=== PATIENT | female | born 2000 | race Caucasian/White ===

== ENCOUNTER 2021-10-10 13:50 | Outpatient (CLI) | payer BC, SELFPAY ==
[2021-10-10 18:44] LABS: HIV 1/2/P24 Combo Screen* Negative (Negative)
[2021-10-10 19:22] LABS: Hepatitis B Surface Antigen* Negative (Negative)
[2021-10-10 20:20] LABS: Hepatitis C Virus Antibody* Negative (Negative)
[2021-10-10 20:32] LABS: Chlamydia DNA Amplified* NOT DETECTED (No Detected); GC DNA Amplified* NOT DETECTED (No Detected)
[2021-10-14 11:27] LABS: Varicella-Zoster Virus Ab, IgG 39.3 IV
[2021-10-14 11:30] LABS: Rubella Antibody IgG 17.5 IU/mL
[2021-10-14 11:43] LABS: Rapid Plasma Reagin (RPR) Non Reactive (Non Reactive)
== END 2021-10-10 13:51 | disposition home or self-care (01) ==
PROVIDERS: Visit Provider Advanced Practice Midwife
DX: Z34.91 Encounter for supervision of normal pregnancy, unspecified, first trimester (principal); Z3A.12 12 weeks gestation of pregnancy
CPT/HCPCS: 76817; 86592; 86703; 86762; 86787; 86803; 86850; 86900; 86901; 87086; 87340; 87491; 87591

== ENCOUNTER 2021-12-06 13:46 | Outpatient (CLI) | payer BC, SELFPAY ==
--- NOTE | 2021-12-06 14:00 | CRLHL7_ITS ---
For Patients: As a result of the Century Cures Act, medical imaging exams and procedure reports are released immediately into your electronic medical record. You may view this report before your referring provider. If you have questions, please contact your health care provider. INDICATION: Evaluate anatomy. COMPARISON: 10/10/2021 TECHNIQUE: Real time segura scale imaging of the fetus was performed as well as color Doppler analysis of the umbilical vessels. FINDINGS: Sonographic imaging demonstrates a single living intrauterine gestation. Fetus demonstrates a regular cardiac rate of 145 beats per minute. Fetus has a vertex position. The placenta lies posteriorly without evidence of placenta previa. The edge of the placenta is located 4.1 cm from the internal cervical os. Amniotic fluid volume appears normal. Single deepest vertical pocket: 4.9 cm. The cervix is closed and measures 3.2 cm in length. The composite ultrasound gestational age is calculated at 21 weeks 4 days with an estimated sonographic due date of 04/14/2022. The estimated weight is 418 grams which lies at the 94th %. The following biometric measurements were obtained: Biparietal diameter: 5.4 cm/22 weeks 3 days greater than 97th% Head circumference: 19.4 cm/21 weeks 5 days 92nd% Abdominal circumference: 16.7 cm/21 weeks 5 days 86th% Femur length: 3.4 cm/20 weeks 5 days 59th% The HC/AC ratio measures: 1.16 range (1.06-1.24) On anatomic survey, there is a normal appearance of the cerebral ventricles, cavum septi pellucidi, cisterna magna and cerebellum. The nose, lips, and facial profile appear normal. The cervical, thoracic and lumbar spine are well visualized and appear normal. There is a normal four-chamber heart view and the left and right ventricular outflow tracts appear normal. The diaphragm and stomach appear normal. The kidneys and bladder also appear normal. There is a normal three-vessel cord and eccentric cord insertion site. The four extremities appear normal. IMPRESSION: Sonographic gestational age 21 weeks 4 days and sonographic due date 04/14/2022. Sonographic age is 9 days ahead of the clinical age. Estimated weight 94th percentile. Abdominal circumference 86th percentile. Normal anatomic survey. Dictated by David Bales MD @ 12/07/2021 3:18:53 PM (Electronically Signed)
== END 2021-12-06 13:47 | disposition home or self-care (01) ==
PROVIDERS: Visit Provider Advanced Practice Midwife
DX: Z34.92 Encounter for supervision of normal pregnancy, unspecified, second trimester (principal); Z3A.20 20 weeks gestation of pregnancy
CPT/HCPCS: 76805

== ENCOUNTER 2022-01-30 11:46 | Outpatient (CLI) | payer BC, SELFPAY ==
[2022-01-30 12:51] LABS: Glucose 1 Hour Gest 130 mg/dl (70-180)
[2022-02-01 23:48] LABS: Rapid Plasma Reagin (RPR) Non Reactive (Non Reactive)
== END 2022-01-30 11:47 | disposition home or self-care (01) ==
PROVIDERS: Visit Provider Advanced Practice Midwife
DX: Z34.93 Encounter for supervision of normal pregnancy, unspecified, third trimester (principal); Z3A.28 28 weeks gestation of pregnancy
CPT/HCPCS: 82950; 85461; 86592; 86850

== ENCOUNTER 2022-03-29 10:56 | Outpatient (CLI) | payer BC, SELFPAY ==
[2022-03-30 12:48] LABS: Strep B DNA Probe NEGATIVE (Negative)
[2022-03-30 12:51] LABS: Strep B Pen/Amox Allergy No
== END 2022-03-29 10:57 | disposition home or self-care (01) ==
LOC: NFLDREF 10:57
PROVIDERS: Visit Provider Advanced Practice Midwife
DX: Z34.03 Encounter for supervision of normal first pregnancy, third trimester (principal); Z3A.35 35 weeks gestation of pregnancy
CPT/HCPCS: 87081; 87653

== ENCOUNTER 2022-05-02 00:08 | Inpatient (IN) | payer BC, SELFPAY ==
[2022-05-02] VITALS (18 sets, daily range): BP systolic 103–142; BP diastolic 63–88; PULSE 88–129; RESP 14–16; TEMP 36.5–36.8; O2SAT 93–98; BMI 37.8
--- NOTE | 2022-05-02 00:42 | P.LDBA_ITS ---
Subjective History of Present Illness Date Seen: 05/02/22 Narrative: Patient is being admitted to Labor and Delivery for active labor. She is a 21 year old at 41.2 weeks gestation. Her full history and physical was dictated by Erlinda Echevarria CNM on 05/04/22. Please see this for details. 1. Varicella non-immune (no hx of disease or vaccination) NEEDS vaccine pp 2. B negative blood type NEEDS RhoGAM at 28 weeks: Given 01/30/22 NEEDS RhoGAM pp OB - Problem Based A/P Additional Plan (1) Pain during labor: Status: Acute (2) Rh negative state in antepartum period: Status: Acute (3) 41 weeks gestation of : Status: Acute Plan ASSESSMENT:? at 41.2?weeks gestation? GBS negative? Uncomplicated ? Postterm in active labor ?? PLAN:? 1. Candidate for analgesia of choice. Planning unmedicated .? 2. Anticipate ? 3. Expectant management at this time.? 4. IV not needed at this time. Consider if patient condition changes per protocol. 5. Intermittent auscultation after reactive tracing is obtained. Delivery/Labor/Induction Plan Plan: expectant management OB Result Labs Blood Type: B (-) negative GBS Status: negative OB Exam Physical Exam Vital signs: Pulse Ox 98 05/02/22 00:36 Narrative: Vitals per EMR? Psychiatric:? Alert and oriented x3? HEENT:? Normocephalic, atraumatic? Neck:? Supple without adenopathy or thyromegaly? Lungs:? Clear to auscultation bilaterally? Heart:? Regular rate and rhythm, no murmur, rub or gallop? Abdomen:? Soft, nontender, and gravid? Extremities:? No edema or erythema? Pelvic:? SVE: 4-5cm/100%/0 per RN exam? Membrane status:? intact? presentation:? vertex? FHT:? Moderate Variability.? Positive Accels.? No Decels. Baseline 135.? Robinson:? Ctx Q2-3min? Detailed Labor and Delivery Exam Patient Gravid: Yes Dilation (cm): 4 Effacement (%): 100 Tachysystole: No Contraction intensity: Strong/Firm Fetus (Single) Station: 0 Amniotic Membrane Status: intact Heart Rate Baseline: 135 Monitor Accelerations: Present Monitor Decelerations: None [facility] Variability: Moderate (6-25)
[2022-05-02 01:02] LABS: SARS PCR* Negative SARS-CoV-2 (Negative)
[2022-05-02] MEDS: OXYTOCIN 10 UNIT/ML INJ IM (02:47)
[2022-05-02] MEDS: LIDOCAINE 1 % PF 30 ML INJECTION (02:57)
[2022-05-02 03:20] LABS: Basophils Percent Auto 0.1 % (0.0-3.0); Hematocrit 38.1 % (33.0-51.0); Immature Granulocytes Pct Auto 0.2 %; Lymphocytes Percent Auto 3.3 % (20-44); Mean Corpuscular HGB Conc 34 gm/dL (32-36); Mean Corpuscular Hemoglobin 29 pg (26-34); Mean Corpuscular Volume 84 fL (80-100); Monocytes Percent Auto 2.9 % (0.0-11.0); Neutrophils Percent Auto 93.5 % (42.0-72.0); Platelet Count* 208 K/uL (140-440); RDW Coefficient of Variation % 12.8 % (11.5-15.5); Red Blood Count 4.52 m/uL (4.00-5.20)
[2022-05-02 03:22] LABS: Slide Review Reflex No
[2022-05-02] MEDS: fentaNYL 100 MCG/2 ML inj 50 MCG IVP ×2 (03:40→04:00)
--- NOTE | 2022-05-02 04:24 | W.PM.VAGDELN ---
OB Procedure Vag Delivery Mother Details Mother Details: The patient is a 21 year-old, 1, Para 1, admitted on 05/02/22 at 41.2 weeks gestation. She started aline regularly and uncomfortably at 2300. she arrived at 4-5cm per RN exam. : 1 Para: 1 Weeks Gestation: 41.2 Admission Date: 05/02/22 Additional Details Amniotic Membrane Status: SROM Amniotic Membrane Rupture Date: 05/02/22 Amniotic Membrane Rupture Time: 00:40 Amniotic Membrane Fluid Description: Clear Analgesia/Anesthesia Type: Fentanyl (for repair only) and Nitrous Oxide Waterbirth: No Pitcoin: Yes Intrapartal Events: None Labor Onset: 05/02/22 ar 2300 Complete: 01:27 (presumed with pushing) Pushin:27 Heart: heart tones during second stage were dopplered in the 130-140 with occasional decelerations to the 110 with pushing in the last few pushes Delivery Details Delivery Date: 05/02/22 Delivery Time: 02:44 Route of delivery: Infant Gender: Female Infant Viability: Alive; Heart Rate Present Position at Delivery: OA Delivery Details: Delivered over intact perineum via spontaneous vaginal delivery. was placed on maternal abdomen.? Cord was clamped and cut after 5 minute delay. Nose and mouth were not immediately bulb suctioned.? Infant weight 8lb 10oz. 1 Minute Interval Total Score: 8 5 Minute Interval Total Score: 9 Additional Details Shoulder Dystocia: No Placenta Delivery Time: 03:35 Placental Delivery Description: Spontaneous Delivery repair: Vicryl Procedure Done: Global Estimated Blood Loss: 900 Laceration: Perineal - 3rd Degree (with sulcal tear) Episiotomy Description: None Blood Loss Measurement Type: QBL Sponge/Need Count Correct: Yes Cord Vessel Description: see note Event Summary Status: Annie arrived on the unit in active labor. She progressed naturally to complete and feeling pushy. She pushed in multiple positions including on the stool, standing, and hand & knees. She ultimately delivered in hands & knees. Baby rapidly descended and delivered. With cord traction tearing of the membranes from the placenta was felt. Dr. Hernandez was requested to evaluate as placenta was not coming on its own and was unable to apply cord traction. The placenta did deliver with maternal pushing as NDP arrived into the room. The cord completely from the placenta at the time of the placenta delivery. The placenta was found to have velamentous cord and marginal cord insertion. There were calcifications observed on the placenta. Upon evaluation by NDP a 3rd degree laceration with sulcal tears was discovered. This was repaired by NDP. Se her note for details. She also had very edematous tissue and a right labial hematoma. A stanley catheter was placed and vaginal packing was placed and are to stay in for 12 hours. They can be removed at 1600. Mother and infant were stable after delivery.
--- NOTE | 2022-05-02 04:40 | PM.PROC ---
Procedure Note Time Seen by Provider: 04:40 Date Seen: 05/02/22 Date of procedure: 05/02/22 Will [facility] bill your pro fee for this procedure?: Yes Procedure: I was asked to assist Cande Echevarria CNM with delivery of the placenta and repair of the vaginal laceration. The placenta delivered spontaneously, see Cande's note for details of labor and delivery. Annie is a 21-year-old 1 now para 1 had a spontaneous vaginal delivery early this morning. I was called for retained placenta which delivered spontaneously soon after I arrived. There was a marginal and velamentous insertion of the umbilical cord. The patient had nitrous gas for analgesia. She received 100 mcg IV fentanyl x1 and evaluation of the laceration showed a third-degree laceration with bilateral sulcus extensions. The laceration was injected with 40 mL of 1% lidocaine. The apices of the sulcus extensions were reapproximated with 3-0 Vicryl in a running locked manner. The vaginal fascia a lateral to the external anal sphincter was grasped with Allis clamps. Three figure of 8 sutures were placed using 3-0 Vicryl: 1 superior to the clamps, 1 inferior to the clamps just above the anus and 1 just underneath the Allis clamps to reinforce the anal sphincter. The remaining second-degree laceration was repaired in the usual manner with 3-0 Vicryl. A Hoyos catheter and vaginal pack were placed. 45 minutes to perform the repair. The patient tolerated this well. 2 g IV Ancef x1 were ordered. Hoyos catheter and vaginal pack can be removed at 4:00 p.m. on 05/02/2022 Surgeon: Yenifer Hernandez MD
[2022-05-02] MEDS: IBUPROFEN 600 MG TABLET PO ×3 (05:06→19:18)
[2022-05-02] MEDS: CEFAZOLIN 2 GM in 0.9 % SODIUM CHLORIDE Mini-bag 100 ML IVPB (07:57)
[2022-05-02] MEDS: DOCUSATE SODIUM 100 MG CAPSULE PO ×2 (08:00→19:18)
[2022-05-02] MEDS: polyethylene glycoL 3350 17 GM PACK PO (08:00)
[2022-05-02] MEDS: SENNOSIDES/DOCUSATE TABLET 1 TAB PO ×2 (08:26→19:18)
[2022-05-02] MEDS: ACETAMINOPHEN 500 MG TABLET 1000 MG PO ×2 (09:27→23:56)
[2022-05-02 18:59] LABS: Basophils Percent Auto 0.1 % (0.0-3.0); Hematocrit 29.5 % (33.0-51.0); Hemoglobin* 9.9 gm/dL (12.0-16.0); Immature Granulocytes Pct Auto 0.2 %; Lymphocytes Percent Auto 12.9 % (20-44); Mean Corpuscular HGB Conc 34 gm/dL (32-36); Mean Corpuscular Hemoglobin 29 pg (26-34); Mean Corpuscular Volume 86 fL (80-100); Monocytes Percent Auto 8.4 % (0.0-11.0); Neutrophils Percent Auto 78.4 % (42.0-72.0); Platelet Count* 222 K/uL (140-440); RDW Coefficient of Variation % 13.2 % (11.5-15.5); Red Blood Count 3.45 m/uL (4.00-5.20); White Blood Count* 12.21 K/uL (4.50-11.00)
[2022-05-02 19:12] LABS: Slide Review Reflex No
[2022-05-03 00:15] VITALS: BP 136/88; PULSE 111; RESP 16; TEMP 36.5; O2SAT 98
[2022-05-03] MEDS: IBUPROFEN 600 MG TABLET PO ×2 (02:22→08:24)
[2022-05-03 06:18] LABS: Hemoglobin* 10.1 gm/dL (12.0-16.0)
[2022-05-03 08:10] VITALS: BP 126/85; PULSE 94; RESP 16; TEMP 36.4; O2SAT 96
--- NOTE | 2022-05-03 08:17 | P.DS_ITS ---
DS: Providers Provider Date Seen: 05/03/22 Date of admission: 05/02/22 00:08 Primary care physician: Not a Local Provider Admitting Clinician: Cande Echevarria CNM Attending Physician on discharge: Africa Marie CNM with Kahlil CARMONA Date of Discharge: 05/03/22 DS: Diagnosis Discharge Diagnosis (1) care and examination immediately after delivery: Status: Acute (2) Third degree perineal laceration during delivery with more than 50% tear of external anal sphincter: Status: Acute (3) Lactating mother: Status: Acute Exam Narrative: Exam Narrative: GENERAL APPEARANCE:? normal affect, alert, no distress? MOOD:? appropriate? CHEST:? clear to auscultation? HEART:? regular rate and rhythm? ABDOMEN:? soft, non-tender the uterine fundus is At Umbilicus, Midline and is appropriate for the stage of recovery.? PERINEUM:? mild edema of the perineum, there is a Perineal Laceration,? 3rd degree that is healing well.? EXTREMITIES:? normal and 1+ edema? Const: Vital Signs, click to edit/add: Vital Signs - 24 hr 05/02/22 11:51 05/02/22 16:04 05/02/22 19:48 Temperature 98.2 F 98.1 F 97.7 F Pulse Rate [Pulse Oximeter] 102 H 114 H 111 H Respiratory Rate 16 16 14 Blood Pressure [Le ft Arm] 121/80 113/63 129/83 Pulse Oximetry 98 96 Oxygen Delivery Me thod Room Air Room Air 05/03/22 00:15 Temperature 97.7 F Pulse Rate [Pulse Oximeter] 111 H Respiratory Rate 16 Blood Pressure [Le ft Arm] 136/88 Pulse Oximetry 98 Oxygen Delivery Me thod Room Air Documenting provider has reviewed patient's vital signs: yes OB - DS: Summary Hospital Course Hospital Course: Annie is a 21 year old G 1 now P 1 at 41.2 weeks gestation that was admitted to the Center on 05/02/22 for labor. She had an uncomplicated vaginal delivery with a 3rd degree laceration. She delivered a viable female infant. She is breast feeding. the patient has done well. The pain is well controlled with current medications.? She has no new complaints.? Urinary output is adequate and she is voiding without difficulty.? Has a good appetite, is tolerating a general diet, is passing flatus, and has not yet had a bowel movement.? Has small amount of rubra lochia.? She is ambulating well. She is and reports it is going well. Undecided on control. Peripartum Data Infant delivery method: Vaginal Laceration description: Perineal - 3rd Degree complications: none [place] Infant Gender: Female Infant Discharge Plan: Home Status at Discharge Functional status at discharge: independent ambulation Overall status at discharge: patient is progressing back to baseline Time Spent with Patient Time attestation: Total time spent providing and/or coordinating discharge services: Time spent: Less than 30 minutes Discharge Plan Discharge Disposition: Home, Self-Care Date of Admission: 05/02/22 00:08 Attending Provider on Discharge: Africa Marie Primary Care Provider: Provider,Not a Local Condition: Stable Anticipated Discharge Date/Time: 05/03/22 12:00 Discharge Medications: New acetaminophen 500 mg Tablet 1,000 mg PO Q6H PRN (Reason: pain/fever) Qty: 0 0RF docusate sodium 100 mg Capsule 100 mg PO BID Qty: 90 0RF ferrous sulfate 325 mg (65 mg iron) Tablet 325 mg PO DAILYWM Qty: 90 0RF sennosides-docusate sodium [Stool Softener-Laxative] 8.6-50 mg Tablet 1 tab PO BID Qty: 60 0RF ibuprofen 600 mg Tablet 600 mg PO Q6H PRNQty: 90 0RF Continued prenat.vits,shelley,[id number] Tablet 1 tab PO QDAY Discharge Orders: Discharge Order (Routine); Ordered 05/03/22 Ordered By: Africa Marie Additional Instructions: Discharge instructions were reviewed with the patient including signs and symptoms of infection and home going medications Nothing vaginally for 6 weeks: no tampons or intercourse Off Work or School for 6 weeks 2-week visit: discuss infant feeding concerns, review control options and screen for anxiety/depression. 6-week visit for an annual exam. consultation services are available to all mothers and babies for the first year after delivery.? To make an appointment, please call [phone]. Activity Level: Activity as Tolerated Discharge Diet: Regular Follow Up Appointments: Provider,Not a Local [Primary Care Provider] - [facility] [Provider Group] Forms: [facility] Info Instructions
[2022-05-03] MEDS: FERROUS SULFATE 325 MG TABLET PO (08:24)
[2022-05-03] MEDS: DOCUSATE SODIUM 100 MG CAPSULE PO (08:24)
[2022-05-03] MEDS: SENNOSIDES/DOCUSATE TABLET 1 TAB PO (08:27)
[2022-05-03] MEDS: polyethylene glycoL 3350 17 GM PACK PO (08:28)
== END 2022-05-03 11:51 | disposition home or self-care (01) | DRG 560 ==
LOC: OB OUT 00:16 → OB 00:16
PROVIDERS: Advanced Practice Midwife; Admitting Provider Advanced Practice Midwife; Visit Provider Advanced Practice Midwife
DX: O48.0 Post-term pregnancy (principal); Z3A.41 41 weeks gestation of pregnancy; O70.22 Third degree perineal laceration during delivery, IIIb; Z67.91 Unspecified blood type, Rh negative; Z37.0 Single live birth
CPT/HCPCS: 36415; 76819; 85018; 85025; 86850; 86900; 86901; 87635; 88307; 99213; A9270; J0690; J2001; J2590; J3010

== ENCOUNTER 2022-05-08 14:20 | Outpatient (CLI) | payer BC, SELFPAY ==
--- NOTE | 2022-05-08 17:00 | W.PM.LAC.MC ---
Consult Note - Mom Date of Visit Date of visit: 05/08/22 solar energy consultant and designer: Swathi Guzman Visit Code: Visit Patient's Information Phone number: [phone] : 1 Para: 1 Allergies No Known Drug Allergies Allergy (Verified 05/10/22 11:33) Mother's Medical History: Medical History (Updated 05/10/22 @ 16:29 by Kahlil Nelson) Third degree perineal laceration during delivery with more than 50% tear of external anal sphincter Delivery Information Delivery type: Vaginal Weeks Gestation: 41.2 Gestational Age: AGA Weight: 3.92 kg Discharge Weight: 3.805 kg Baby's Information Baby's Age at Visit: 6 days Baby's Provider or Clinic: Dr. Flores Jaundice: Yes (to BLE) Reason for Consult Reason for Consult: difficulty latching baby on L side, damaged nipples Past Experience Past Experience: No Current Frequency of Day Feedings: mom is nursing every 2 - 2.55 hours around the clock Both Breasts: No Suck: strong Latch: fairly wide Length of Time: 20 - 30 minutes Pumping Pumping: Yes (use the Haakaa & electric pump a few times to help relieve the engorgement) Quantity Pumped: about 1 oz total each time Supplementing EMB Supplement: Yes (gave an ounce of pumped milk one time) Formula Supplement: No Baby Elimination Number of Wet Diapers a Day: almost every feeding Number of BM a Day: almost every feeding; greenish-yellow and seedy Breast/Nipple Condition Breast Information: WNL Engorgement: Yes (resolving) Interventions for Engorgement: Warm Pack, Pump and Other (Haakaa, breast massage) Maternal Nipple Condition - Left: Common Nipple (scabbed) Maternal Nipple Condition - Right: Common Nipple (scabbed) Sore Nipples: Yes Onsite Pre-Feed weight: 3.952 kg Post-Feed weight: 4.034 kg Milk Transferred (mL): 82 Pre-Nursing Left Nipple: Within Normal Limits Pre-Nursing Right Nipple: Within Normal Limits Post-Nursing Left Nipple: Within Normal Limits Post-Nursing Right Nipple: Within Normal Limits Assessments/Interventions Assessments/Interventions: Assessments/Interventions: Met with mom and this now 6 day old ex- term AGA baby for consult. Spoke with mom on 05/05 and she was very engorged, especially on the left breast, and stated it was hard for baby to nurse on that side.? She was instructed to use warm compresses, gentle breast and lymph drainage massage, and hand expression or her Haakaa (referred her to videos by Johnnie Hathaway and the [facility]) and an appointment was set up for today.? Mom reports she still feels somewhat uncomfortable on the left breast, but the massage and heat helped.? She states she also started offering baby only one side at each feeding, but made sure baby had emptied that one side.? She feels this routine also helped to more fully empty the breast and provided relief.? She said baby is nursing every 2 - 2.5 hours for 15 - 30 minutes.? She used her Haakaa and electric pump a few times, getting about an ounce each time.? Baby was bottle fed EBM once when she was in too much pain to try nursing. Breasts WNL- symmetrical with rounded lower quadrants, intramammary distance is < 1.5 inches.? Nipples are everted and don't flatten or retract on compression; both nipples have stage II nipple damage that is scabbing.? Mom also has plugged ducts along the upper outer quadrant of the left breast, right breast is soft. Baby has gained 27 grams/day since her NB visit on 05/05 and she's 32 grams above BW at 6 DOL.? Per mom she has equal ROM when turning her head and moving her extremities.? Her palate is WNL and she has a very strong suck on a finger.? Her upper lip is easy to flange, but the gums do jyotsna.? Her lower frenulum was a little difficult to visualize but appears to be WNL.? Her tongue cups around a finger and extends past the gum line.? It also has good lateralization to the the right, but some canoeing when following a finger to the left.? Mom latched baby to the left side and the latch appeared to be wide; mom was comfortable and stated baby hadn't done this well over the weekend.? As she started to get tired baby slipped a little so mom was encouraged to take her off and reposition her. When she did and tried the cross cradle hold, the latch was wider and mom was more comfortable.? Baby nursed for about 25 minutes, needing some stimulation but transferred 82 ml.? Mom reported her plugged ducts felt much softer. Plan: 1. Mom to nurse baby ALD- not letting her go past three hours for now.? OK to only offer one side at each feeding, but taking her off and re-latching her to the same side if she gets sleepy.? Suggested mom try the cross cradle hold and be mindful of her finger placement when supporting her breast so baby can get a deeper latch. 2. Pump or use the Haakaa if needed to soften the breast before nursing, and afterwards to comfort as needed. 3. No medical need to supplement baby. 4. Use colostrum and keep nipples open to air for a few minutes after nursing to help them heal. 5. F/U with PCP for a two week WCC and in for a one month pre and post weight check. Meds Home Medications and Allergies Home Medications Medication Instructions Recorded Confirmed Type prenat.vits,shelley,[id number]-ffwjc 1 tab PO QDAY 01/30/22 05/10/22 History Allergies Allergy/AdvReac Type Severity Reaction Status Date / Time No Known Drug Allergies Allergy Verified 05/10/22 11:33
== END 2022-05-08 14:21 | disposition home or self-care (01) ==
PROVIDERS: Visit Provider Advanced Practice Midwife
DX: Z39.1 Encounter for care and examination of lactating mother (principal)
CPT/HCPCS: 99211

== ENCOUNTER 2023-02-07 13:48 | Outpatient (CLI) | payer BC, OTHER, SELFPAY ==
--- NOTE | 2023-02-07 14:00 | CRLHL7_ITS ---
For Patients: As a result of the Century Cures Act, medical imaging exams and procedure reports are released immediately into your electronic medical record. You may view this report before your referring provider. If you have questions, please contact your health care provider. HISTORY: Dating and viability COMPARISON: None available of this gestation. TECHNIQUE: Transabdominal ultrasound examination of the early was performed. Patient declined transvaginal examination FINDINGS: A single intrauterine gestational sac is seen with a pole. The crown-rump length measurement of 4.1 cm gives an estimated gestational age of 11 weeks 0 days with an estimated date of delivery of 08/29/2023. This correlates well with the LMP of 11/13/2022 which gives a clinical age of 12 weeks 2 days. Regular cardiac activity is seen at 183 BPM. There is no sign of free fluid in the pelvis. The ovaries are not visualized. IMPRESSION: Single intrauterine gestation with estimated age of 11 weeks 0 days. Regular cardiac activity is seen. Dictated by Aldo Koroma MD @ 02/10/2023 12:06:35 PM (Electronically Signed)
== END 2023-02-07 13:49 | disposition home or self-care (01) ==
LOC: US 13:52
PROVIDERS: Visit Provider Registered Nurse
DX: Z34.91 Encounter for supervision of normal pregnancy, unspecified, first trimester (principal); Z3A.11 11 weeks gestation of pregnancy
CPT/HCPCS: 76817; 86703; 86706; 86803; 86850; 86900; 86901; 87086; 87340; 87491; 87591

== ENCOUNTER 2023-02-07 15:14 | Outpatient (CLI) | payer BC, OTHER, SELFPAY ==
[2023-02-07 18:58] LABS: Chlamydia DNA Amplified* NOT DETECTED (No Detected); GC DNA Amplified* NOT DETECTED (No Detected)
== END 2023-02-07 15:15 | disposition home or self-care (01) ==
PROVIDERS: Visit Provider Registered Nurse
DX: Z34.91 Encounter for supervision of normal pregnancy, unspecified, first trimester (principal)
CPT/HCPCS: 86592; 86703; 86704; 86706; 86762; 86787; 86803; 86850; 86900; 86901; 87086; 87340; 87491; 87591

== ENCOUNTER 2023-04-13 14:02 | Outpatient (CLI) | payer OTHER, SELFPAY ==
--- NOTE | 2023-04-13 14:00 | CRLHL7_ITS ---
For Patients: As a result of the Century Cures Act, medical imaging exams and procedure reports are released immediately into your electronic medical record. You may view this report before your referring provider. If you have questions, please contact your health care provider. OB ULTRASOUND CLINICAL HISTORY: anatomy. LUANNE by LMP: 08/29/2023. LUANNE by US: 08/27/2023. GA: 20 w, 4 d. INDICATION: anatomy. FINDINGS: position: Multiple positions. Cervix: Visualized. Technique: Transabdominal. Length of closed cervix: 3.6 cm. Placenta/cord: Fundal. Posterior. Technique: Transabdominal. Placenta tip to internal OS: 8.8 cm. Umbilical Cord: 3-vessel cord. Placenta insertion: Central. Amniotic Fluid: 7.0 cm SDP (greater than/equal to: 2- less than 8 cm). SURVEY: Observed Structures Cerebellum: Yes. 2.1 cm; 20 w 6 d. Cisterna Magna: Yes. 4.0 mm. Nuchal Fold: Yes. 3.9 mm. Lateral Ventricle: Yes. 5.5 mm. CSP: Yes. Midline Falx: Yes. Choroid Plexus: Yes. Spine: Yes. Stomach: Yes. Abd Cord Insertion: Yes. Urinary Bladder: Yes. Kidneys: Yes. Diaphragm: Yes. Nose/lips: Yes. Orbital view: Yes. Profile: Yes. Upper Extremities: Yes. Lower Extremities: Yes. Hands: Yes. Feet: Yes. Four-Chamber Heart: Yes. LVOT: Yes. RVOT: Yes. 3VV: Yes. BPD: 5.0 cm. 21 w 0 d, 79 percent. HC: 17.8 cm. 20 w 2 d, 41 percent. AC: 16.1 cm. 21 w 2 d, 74.6 percent. FL: 3.1 cm. 19 w 4 d, 20 percent. FL/AC: 19.21 percent. HC/AC Ratio: 1.10. Heart rate: 144 beats per minute. age by this US: 20 w 4 d. LUANNE by this US: 08/27/2023. EFW: 1357.4 g. Weight: 13 oz. Percentile by LUANNE: 57.1 percent. IMPRESSION: Single live intrauterine gestation. No gross anomalies visualized. Luz Maria Evans M.D. Diagnostic/Breast Radiologist [email or web address] [email or web address]/Dictated by: Luz Maria Evans MD @ 04/16/2023 5:49:00 AM (Electronically Signed)
== END 2023-04-13 14:03 | disposition home or self-care (01) ==
LOC: US 14:03
PROVIDERS: Visit Provider Advanced Practice Midwife
DX: Z34.92 Encounter for supervision of normal pregnancy, unspecified, second trimester (principal); Z3A.20 20 weeks gestation of pregnancy
CPT/HCPCS: 76805

== ENCOUNTER 2023-06-12 16:44 | Outpatient (CLI) | payer OTHER, SELFPAY | END 2023-06-12 16:45 | disposition home or self-care (01) | LOC: NFLDREF 16:45 | PROVIDERS: Visit Provider Advanced Practice Midwife | DX: Z34.83 Encounter for supervision of other normal pregnancy, third trimester (principal); Z67.21 Type B blood, Rh negative | CPT/HCPCS: 86592; 86850; J2791 ==

== ENCOUNTER 2023-06-21 08:05 | Outpatient (CLI) | payer OTHER, SELFPAY | END 2023-06-21 08:06 | disposition home or self-care (01) | LOC: NFLDREF 07-10 14:41 | PROVIDERS: Visit Provider Advanced Practice Midwife | DX: Z34.83 Encounter for supervision of other normal pregnancy, third trimester (principal) | CPT/HCPCS: 82951; 82952 ==

== ENCOUNTER 2023-08-02 14:15 | Outpatient (CLI) | payer OTHER, SELFPAY | END 2023-08-02 14:16 | disposition home or self-care (01) | LOC: NFLDREF 08-21 12:56 | PROVIDERS: Visit Provider Advanced Practice Midwife | DX: Z34.83 Encounter for supervision of other normal pregnancy, third trimester (principal) | CPT/HCPCS: 87081; 87653 ==

== ENCOUNTER 2023-08-30 09:54 | Inpatient (IN) | payer OTHER, SELFPAY ==
[2023-08-30] VITALS (20 sets, daily range): BP systolic 83–122; BP diastolic 49–84; PULSE 70–110; RESP 16–22; TEMP 36.9–37; O2SAT 83–100; BMI 36.6
[2023-08-30] MEDS: OXYTOCIN 10 UNIT/ML INJ IM (09:06)
[2023-08-30] MEDS: LACTATED RINGERS 1000 ML 1,000 ML 925 ML IV (09:12)
[2023-08-30] MEDS: LIDOCAINE 1 % PF 30 ML INJECTION (09:30)
[2023-08-30] MEDS: OXYTOCIN 30 unit/500 ML in NS 30 UNIT/500 ML BAG 300 UNIT IVPB (09:35)
[2023-08-30] MEDS: IBUPROFEN 600 MG TABLET PO ×2 (09:42→17:11)
--- NOTE | 2023-08-30 10:30 | W.PM.OBVAGDE ---
OB Procedure Vag Delivery Mother Details Mother Details: The patient is a 23 year-old, 2, now Para 2, admitted on 08/30/23 after precipitous vaginal delivery in her car on way to the hospital. She called on her way to notify us that she was coming in. A short bit after, she called again saying her water broke. Then a little bit later called saying she had a vaginal delivery in her car. They stopped and the ambulance assessed them. The were given the OK to then proceed by private car to the hospital. Baby was crying during the phone call. Patient was met in the Ambulance bay upon arrival in private car. : 2 Para: 2 Weeks Gestation: 40.1 Admission Date: 08/30/23 Additional Details Amniotic Membrane Status: SROM Amniotic Membrane Rupture Date: 08/30/23 Amniotic Membrane Rupture Time: 08:26 Amniotic Membrane Fluid Description: Clear Analgesia/Anesthesia Type: None Waterbirth: No Pitcoin: Yes (AMTSL) Intrapartal Events: Precipitous Labor <3 Hrs Labor Onset: 06:30 Heart: No heart tones obtained, delivered in car before arrival to hospital. Delivery Details Delivery Date: 08/30/23 Route of delivery: Gender: Male Viability: Alive; Heart Rate Present Delivery Details: Annie precipitously had a of a viable male in private car on her way to the hospital. They called an ambulance and reports they were assessed by [place] ambulance before being told they could continue their travel to [facility]. She was instructed to go to the nearest hospital but declined, instead proceeding to [facility] where she has received her care. Nurses and CNM provider met her at her car in the ambulance bay for initial assessment. Mom was in the passenger seat, reclined, with baby on her chest covered with a blanket. Baby's cord had been clamped with a shoe lace then clamped again by yellow clamps. Patient reports it was cut by the first responders. Baby was passed to dad and covered with a warm blanket so that mom could be further assessed. She reported feeling crampy and hot. Placenta had not yet been delivered. She was assisted from the car to a wheelchair with a chucks pad placed under her. IM pit was given due to the amount of bleeding present, placenta had not yet delivered, and patients complaints of not feeling well. She was then covered with a blanket and transported by wheelchair to Labor and Delivery room. Dad moved his car out of the ambulance bay and met us in the patient room. was carried by RN to be assessed in her Labor and Delivery room. Peds was notified. Upon arrival on unit, patient was transferred from wheelchair to bed. Patient reported feeling unwell and dizzy. Initial BP was 83/49. Recommended IV bolus. Patient also requested juice. Placenta spontaneously delivered intact with a 3 vessel cord at 0912. A large clot was delivered with and another adherent to placenta. Fundus firm. 2nd degree identified and repaired in typical fashion. QBL 580 cc, however unable to account for bleeding in car at time of delivery and after. Patient had a lot of pain and cramping during repair and intermittent moderate gushes of bleeding. IV pitocin started. Patient did have 2 episodes of emesis. Afterward, her color improved, bleeding slowed and tone remained firm. Mother and baby stable; mother plans to breastfeed. Infant weight pending. Additional Details Shoulder Dystocia: No Placenta Delivery Time: 09:12 Placental Delivery Description: Spontaneous Delivery repair: Vicryl Procedure Done: Global ( in car, placenta delivered in the hospital) Blood Loss: 580 Laceration: Perineal - 2nd Degree Blood Loss Measurement Type: QBL (EBL difficult to assess due to blood present in car and on personal clothing) Bakri Used: No Sponge/Need Count Correct: Yes Cord Vessel Description: 3 Vessels Event Summary Status: Mother and infant were stable after delivery. Disposition: floor
--- NOTE | 2023-08-30 11:42 | W.PM.LDBA ---
Subjective History of Present Illness Narrative: Patient admitted to labor and delivery after precipitous delivery in car en route to the hospital. See delivery note for additional details. Specific Issues/Plans G 2 P 1001 Its a boy! H&P done by BERNADINE Contreras on 08/08/2023 1. Closely spaced pregnancies. Last delivery 05/02/2022. 2. History of 3rd degree laceration with previous delivery. Recommend perineal massage 3. BMI 33.2 A1C: 5.3 4. Rh negative B- Recommend RhoGam at 28wks: 06/12/2023 Recommend RhoGam pp: 5. Varicella non-immune. Recommend PP vaccine. (consider at 2 wk PP) 6. Failed 1 hour gct, 3 hour all normal Flu: Declines Covid: Not vaccinated, declines. Recommended. Reviewed risks of COVID infection in . OB - Problem Based A/P Additional Plan (1) Encounter for care after unplanned out of hospital delivery: Status: Acute Plan: Placenta not delivered on admission to hospital. (2) Precipitous delivery: Status: Acute (3) Rh negative status during : Status: Acute (4) (normal spontaneous vaginal delivery): Status: Acute Plan ASSESSMENT:? 23 yo at 40 1/7 weeks gestation? complicated by:?closely spaced , hx of 3rd degree, Rh neg, Failed 1 hour but passed all 3 hour values, varicella non-immune Status post , placenta not yet delivered at time of arrival Labor complicated by: precipitous delivery?in car prior to arrival GBS negative? ? PLAN:? 1. Admit to inpatient. Post-delivery management. Delivery of placenta, IM pitocin, and assess blood loss. 2. Bolus of IV fluids given due to patient symptomatic response after . IV pitocin started during repair due to continued bleeding/gushes of blood. 3. Laceration assessment and repair. 4. Routine care. 5. Blood from cord was collected for assessment of RH status due to maternal B negative blood type OB Exam Physical Exam Vital signs: Pulse BP Pulse Ox 78 111/67 100 08/30/23 11:26 08/30/23 11:26 08/30/23 09:56 Narrative: Vitals Reviewed Constitutional:? Alert and oriented x3 HEENT:? Normocephalic, atraumatic Neck:? Supple Lungs:? Clear to auscultation bilaterally Heart:? Regular rate and rhythm, no murmur, rub or gallop Abdomen:? Soft, nontender, and gravid. Vertex by Marc's, confirmed with cervical exam. Extremities:? No edema or erythema Bleeding: Moderate/heavy bleeding present. Her dress was saturated, blood present on car seat and floor, and significant on the pads she was provided by ambulance. IM pitocin given in the ambulance bay prior to transport onto unit. Placenta remains, cord visible and clamped. Detailed Labor and Delivery Exam Patient Gravid: No
[2023-08-30] MEDS: DOCUSATE SODIUM 100 MG CAPSULE PO (21:27)
[2023-08-31] MEDS: IBUPROFEN 600 MG TABLET PO ×2 (00:13→10:55)
[2023-08-31 05:00] VITALS: BP 109/69; PULSE 99; RESP 16
--- NOTE | 2023-08-31 07:49 | PM.OBDSVD1 ---
DS: Providers Provider Date Seen: 08/31/23 Date of admission: 08/30/23 09:54 Primary care physician: Not a Local Provider Admitting Clinician: Africa Marie CNM Attending Physician on discharge: Kahlil Nelson CNM Date of Discharge: 08/31/23 DS: Diagnosis Discharge Diagnosis (1) Encounter for care after unplanned out of hospital delivery: Status: Acute (2) Lactating mother: Status: Acute (3) Rh negative status during : Status: Acute Exam Narrative: Exam Narrative: VSS, afebrile GENERAL APPEARANCE: ?normal affect, alert, no distress MOOD: ?appropriate HEENT: normocephalic, neck supple, full ROM CHEST: ?Symmetrical chest wall movement. ?Normal respiratory effort. ?Clear to auscultation HEART: ?regular rate and rhythm ABDOMEN: ?soft, non-tender. Uterine fundus is firm, at Umbilicus, Midline and is appropriate for the stage of recovery. ?Bowel sounds present. PERINEUM: ?mild edema of the perineum, there is a 2nd degree laceration that is healing well. EXTREMITIES: ?normal and no edema Const: Vital Signs, click to edit/add: Vital Signs - 24 hr 08/30/23 09:16 08/30/23 09:17 08/30/23 09:20 Temperature Pulse Rate 70 Pulse Rate [Pulse Oximeter] Respiratory Rate Blood Pressure 83/49 L Blood Pressure [Le ft Arm] Pulse Oximetry 100 [facility] 09:20 08/30/23 09:21 08/30/23 09:25 Temperature Pulse Rate 82 Pulse Rate [Pulse Oximeter] 82 88 Respiratory Rate 16 16 Blood Pressure 88/50 L Blood Pressure [Le ft Arm] 88/50 L 90/55 L Pulse Oximetry 83 L [facility] 08/[facility]/23 09:26 08/30/23 09:27 08/30/23 09:31 Temperature Pulse Rate 88 Pulse Rate [Pulse Oximeter] Respiratory Rate Blood Pressure 90/55 L Blood Pressure [Le ft Arm] Pulse Oximetry 100 88 99 Oxygen Delivery [facility] 08/30/23 09:36 08/30/23 09:36 08/30/23 09:41 Temperature Pulse Rate 79 71 Pulse Rate [Pulse Oximeter] Respiratory Rate Blood Pressure 113/59 L 104/55 L Blood Pressure [Le ft Arm] Pulse Oximetry 94 94 100 Oxygen Delivery [facility] 08/30/23 09:46 08/30/23 09:51 08/30/23 09:56 Temperature Pulse Rate 78 Pulse Rate [Pulse Oximeter] Respiratory Rate Blood Pressure 98/57 L Blood Pressure [Le ft Arm] Pulse Oximetry 100 100 100 Oxygen Delivery [facility] 08/30/23 10:45 08/30/23 10:56 08/30/23 11:11 Temperature Pulse Rate 86 80 81 Pulse Rate [Pulse Oximeter] Respiratory Rate Blood Pressure 122/84 110/77 113/66 Blood Pressure [Le ft Arm] Pulse Oximetry Oxygen Delivery [facility] 08/30/23 11:26 08/30/23 15:16 08/30/23 21:14 Temperature 98.4 F 98.4 F Pulse Rate 78 Pulse Rate [Pulse Oximeter] 108 H 110 H Respiratory Rate 16 22 Blood Pressure 111/67 Blood Pressure [Le ft Arm] 109/72 110/72 Pulse Oximetry 96 96 Oxygen Delivery [facility] Room Air Room Air 08/30/23 23:56 08/31/23 05:00 Temperature 98.6 F Pulse Rate Pulse Rate [Pulse Oximeter] 105 H 99 Respiratory Rate 16 Blood Pressure Blood Pressure [Le ft Arm] 106/72 109/69 Pulse Oximetry 98 Oxygen Delivery Me [facility] Room Air Documenting provider has reviewed patient's vital signs: yes OB - DS: Summary Hospital Course Hospital Course: Annie is a 23 y.o. who was admitted to [facility] after delivering her baby in the car on the way to the hospital. ?She had an uncomplicated NVD.?The patient feels well. ?The pain is well controlled with current medications. ?She has no new complaints. ?She is breast feeding and reports things are going well.? the patient has done well.? Vitals have been stable.? She has remained afebrile.? Has a good appetite, is tolerating a general diet. ?She is voiding without difficulty.? She is passing gas and has not had a bowel movement.? She is ambulating and denies any dizziness.? Has Small amount of rubra lochia. ?She is planning nothing for prevention. Peripartum Data Infant delivery method: Vaginal Laceration description: Perineal - 2nd Degree complications: none [place] Infant Gender: Male Infant Discharge Plan: Home Status at Discharge Functional status at discharge: independent ambulation Overall status at discharge: patient is progressing back to baseline Time Spent with Patient Time attestation: Total time spent providing and/or coordinating discharge services: Time spent: Less than 30 minutes Discharge Plan Discharge Disposition: Home, Self-Care Date of Admission: 08/30/23 09:54 Attending Provider on Discharge: Kahlil Nelson Primary Care Provider: Provider,Not a Local Condition: Stable Anticipated Discharge Date/Time: 08/31/23 12:00 Discharge Medications: New acetaminophen 500 mg Tablet 1,000 mg PO Q6H PRNQty: 0 0RF docusate sodium 100 mg Capsule 100 mg PO BID PRNQty: 180 2RF ibuprofen 600 mg Tablet 600 mg PO Q6H PRNQty: 60 0RF ferrous sulfate 324 mg (65 mg iron) tablet,delayed release (DR/EC) 324 mg PO Q OTHER DAY Qty: 30 2RF Continued prenat.vits,shelley,[id number] Tablet 1 tab PO QDAY Discharge Orders: Discharge Order (Routine); Ordered 08/31/23 Ordered By: Kahlil Nelson Patient Education: OB Over the Counter Medication Information, OB Vaginal/Breast Feeding Activity Level: Activity as Tolerated Discharge Diet: Regular Follow Up Appointments: Provider,Not a Local [Primary Care Provider[facility] - [facility] [Provider Group] Forms: MyHealth Info Instructions
[2023-08-31 08:41] VITALS: BP 111/75; PULSE 94; RESP 16; TEMP 36.5; O2SAT 96
[2023-08-31] MEDS: DOCUSATE SODIUM 100 MG CAPSULE PO (08:55)
[2023-08-31] MEDS: ACETAMINOPHEN 500 MG TABLET 1000 MG PO ×2 (08:55→14:49)
[2023-09-01 22:01] LABS: Rapid Plasma Reagin (RPR) Non Reactive (Non Reactive)
== END 2023-08-31 15:00 | disposition home or self-care (01) | DRG 806 ==
LOC: OB OUT 09:54 → OB 09:54
PROVIDERS: Admitting Provider Advanced Practice Midwife; Visit Provider Advanced Practice Midwife
DX: Z39.0 Encounter for care and examination of mother immediately after delivery (principal); O72.1 Other immediate postpartum hemorrhage; Z37.0 Single live birth; O26.893 Other specified pregnancy related conditions, third trimester; Z67.21 Type B blood, Rh negative; O70.1 Second degree perineal laceration during delivery
CPT/HCPCS: 36415; 85018; 85461; 86592; G0463; A9270; J2001; J2590; J2791; J7120